=== PATIENT | female | born 1985 | race Caucasian/White ===

== ENCOUNTER 2020-03-19 21:53 | Emergency (ER) | payer OTHER ==
[2020-03-19] MEDS ORDERED: ACETAMINOPHEN 325 MG TABLET PO ONE (22:36)
[2020-03-19] MEDS ORDERED: ONDANSETRON 4 MG TAB.RAPDIS PO ONE (22:36)
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
[2020-03-20] MEDS ORDERED: METOCLOPRAMIDE HCL 10 MG TABLET PO ONE (04:32)
[2020-03-20] MEDS ORDERED: OXYCODONE HCL IR 5 MG TABLET PO ONE (04:32)
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
[2020-03-20] MEDS ORDERED: IBUPROFEN 600 MG TABLET PO ONE (05:17)
[2020-03-20 05:33] VITALS: BP 118/70
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
[2020-03-20] MEDS ORDERED: HYDROCODONE/ACETAMINOPHEN 5-325 MG (6 TAB/ER DISP) PO PRN (06:02)
[2020-03-20] MEDS ORDERED: ONDANSETRON ODT 4 MG TAB (6 TAB/ER DISP) PO PRN (06:03)
== END 2020-03-20 06:27 | disposition home or self-care (01) ==
LOC: ER 21:53
DX: S40.021A Contusion of right upper arm, initial encounter (principal); S09.90XA Unspecified injury of head, initial encounter; M54.2 Cervicalgia; M25.512 Pain in left shoulder; M54.5 Low back pain; R11.2 Nausea with vomiting, unspecified; Y04.8XXA Assault by other bodily force, initial encounter; Y92.239 Unspecified place in hospital as the place of occurrence of the external cause; Y99.0 Civilian activity done for income or pay
CPT/HCPCS: 99284; 72050; 72110; 73030; 72070; 70450; 72125; S0119

== ENCOUNTER 2020-03-22 18:35 | Emergency (ER) | payer OTHER ==
[2020-03-22] MEDS ORDERED: KETOROLAC TROMETHAMINE INJ/PF 30 MG/1 ML SDV IV ONE ×2 (18:48→20:32)
[2020-03-22] MEDS ORDERED: DIPHENHYDRAMINE HCL 50 MG/ML VIAL IV ONE (18:48)
[2020-03-22] MEDS ORDERED: METOCLOPRAMIDE HCL INJ/PF 10 MG/2 ML SDV IV ONE (18:48)
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
[2020-03-22 21:18] VITALS: BP 123/76
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
== END 2020-03-22 21:19 | disposition home or self-care (01) ==
LOC: ER 18:35
DX: M54.12 Radiculopathy, cervical region (principal); S29.012A Strain of muscle and tendon of back wall of thorax, initial encounter; Y09 Assault by unspecified means; Y92.199 Unspecified place in other specified residential institution as the place of occurrence of the external cause; Y99.0 Civilian activity done for income or pay; F07.81 Postconcussional syndrome; M25.512 Pain in left shoulder; R51 Headache; M62.830 Muscle spasm of back; R20.0 Anesthesia of skin; R20.2 Paresthesia of skin; R11.0 Nausea; F17.210 Nicotine dependence, cigarettes, uncomplicated
CPT/HCPCS: 96376; 99283; 96374; 96375; J1200; J1885; J2765